=== PATIENT | male | born 1950 | race Caucasian/White ===

== ENCOUNTER 2025-02-04 10:05 | Emergency (ER) | payer OTHER, SELFPAY ==
[2025-02-04 10:15] VITALS: BP 101/73
[2025-02-04 11:27] VITALS: BMI 23.9
[2025-02-04 11:32] VITALS: BP 102/80
--- NOTE | 2025-02-04 11:44 | ED.GENMED ---
History of Present Illness
General
Chief Complaint: Rectal Bleeding
Source: patient
Exam Limitations: none
Time Seen by Provider: 02/04/25 11:12
Nursing documentation reviewed up to this point in time: agreed with
History of Present Illness
History of Present Illness:
Patient is a 75-year-old male who presents to the ER for evaluation. Patient reports he had sushi 2 days ago and that evening started with vomiting diarrhea. He had 1 episode of vomiting and multiple episodes of diarrhea. He continued to have
diarrhea until yesterday afternoon around 12 PM. He did notice however when he wiped he noticed bright red blood on the toilet paper. He denies any diarrhea now. He reports stools are just soft. He denies any abdominal pain fever chills
dizziness. He is on aspirin only no other blood thinners.
No one else ate the same food as he did.
Past History
Past History
ED Past Medical History: Hypercholesterolemia; Negative Arrthythmia
ED Past Surgical History: Appendectomy, Brain and Other (SDH)
Social History
Tobacco: Former smoker
Alcohol: Occasional
Drug: None
Personal:
Living: with family
Employment: Employed ([employer])
Family History
Family History: Other (Noncontributory)
Review of Systems
Review of Systems
Allergies reviewed?: Yes
All Other Systems: ROS reviewed and negative except as documented in HPI and ROS
Constitutional: Reports no symptoms
Respiratory: Reports no symptoms
Cardiac: Reports no symptoms
ABD/GI: Reports nausea, vomiting, diarrhea and other (bright red blood on toilet paper ); Denies abdominal pain or constipated
Musculoskeletal: Reports no symptoms
Skin: Reports no symptoms
Neurological: Reports no symptoms
Psychiatric: Reports no symptoms
Phy Exam
General Physical Exam
General Presentation: no apparent distress
General Skin: warm and dry
General Habitus: normal
General Mental: alert
General Hydration: appears well hydrated
Cardiovascular Exam
Cardiovascular Exam: regular rate/rhythm, no murmur and normal peripheral pulses
Pulmonary Exam
Pulmonary Exam: lungs clear and no respiratory distress
Gastrointestinal Exam
Gastrointestinal Exam: non tender, soft and other (rectal exam: no stool however small amt of bright red blood in rectum )
Neurological Exam
Neurological Exam: alert and oriented x3
Musculoskeletal Exam
Musculoskeletal Exam: full ROM
Skin Exam
Skin Exam: normal color and warm/dry
Psychiatric Exam
Psychiatric Exam: normal mood/affect
Course
Orders/Labs/Results
Orders:
Orders
02/04/25 11:16
IV Insert/Care/Rem.- Treatment PRN
Stool Culture Urgent
HILARIA Source: Feces/Stool
Specimen Description:
Date Specimen was Collected: 02/04/25
Time Specimen was Collected: 11:24
02/04/25 11:27
Complete Blood Count/With Diff Urgent
Comprehensive Metabolic Panel Urgent
02/04/25 11:45
CT Abd/Pel (IV only)-DH only Urgent
Comment:
Reason For Exam: rectal bleeding
0.9% Sodium Chloride 1000 ml [Nss] 1,000 ml IV BOLUS
Abnormal Lab Results
02/04/25
11:27
MPV 10.8 H fL
(7.4-10.4)
Absolute Monos (auto) 0.8 H 10^3/uL
(0.1-0.6)
BUN 23 H mg/dl
(9-20)
02/04/25 11:27
02/04/25 11:27
Vital Signs
Initial and Last Documented VS:
Initial Vital Signs
Temp Pulse Resp BP Pulse Ox
97.8 F 73 18 101/73 96
02/04/25 10:15 02/04/25 10:15 02/04/25 10:15 02/04/25 10:15 02/04/25 10:15
Last Documented Vital Signs
Temp Pulse Resp BP Pulse Ox
97.8 F 73 18 110/84 95
02/04/25 10:15 02/04/25 10:15 02/04/25 10:15 02/04/25 13:43 02/04/25 13:45
Patient Service Associate consulted with Physician
Patient Service Associate consulted with physician?: Yes
Name of Physician Consulted: kiana
MDM/Problems Addressed
Differential Diagnosis Includes:
not limited to: colitis, viral syndrome, gi bleed
MDM/Problems Addressed:
Patient is document is a 75 show male who presented to the ER for evaluation. He had sushi several nights ago and had several episodes of vomiting and diarrhea, vomiting stopped but diarrhea ended yesterday at 12 PM. He did complain of some bright
red blood on the toilet paper with wiping which prompted patient to come to the ER. He no obvious abdominal pain however with question of bloody diarrhea CAT scan was done as reviewed with ED physician. CAT scan shows suggestion of some descending
colon wall thickening and some surrounding stranding LE suspicious for colitis. Patient rectal exam was done there is no stool in the rectum trace blood.
Patient is afebrile with a normal white count stable hemoglobin and platelets, normal chemistries .
Case discussed with GI DR Cuba will hold off on antibx.
*Radiology
Radiology exam reviewed: radiology read reviewed
*Critical Care Note
Total Time (30-74mins, 75-104mins- exclusive of procedures): Not Applicable
ED Attending Note
-
Portions of this chart may have been created with voice recognition software.� Occasional wrong word or��sound alike� substitutions may have occurred due to the inherent limitations of voice recognition software.
Discharge Plan
Departure
Patient Disposition: Home (Routine Discharge)
Date of Disposition: 02/04/25
Time of Disposition: 14:20
Patient with high blood pressure during this ER visit?: No
Covid-19: Not Applicable
Discharge Problem:
Colitis
Instructions: Diarrhea in teens and adults, Colitis - Discharge instructions
Prescriptions:
No Action
sildenafil (pulm.hypertension) 20 mg Tablet
60 mg PO TID
ambrisentan 10 mg Tablet
10 mg PO QPM
Referrals:
Anmol Cuba MD [Active] -
Teddy Chavez MD [Family Provider] -
Activity Restrictions/Additional Instructions:
As discussed bland diet for the next several days as tolerated. Stay well-hydrated. Follow-up with family doctor in the next several days for reexam and return if any worsening of symptoms. In addition please follow-up with GI.
Interventions
Interventions:
*Risk Screen - Suicide Last Done: 02/04/25 10:15
*General Assessment Last Done: 02/04/25 10:15
*Neglect/Abuse Screening Last Done: 02/04/25 10:15
*ED COVID-19 Vaccine History Last Done: 02/04/25 11:27
FT-Qktoup-Qezrmdegbi Assessment Last Done: 02/04/25 11:50
ED- Cardiac Assessment Last Done: 02/04/25 11:50
ED- Pulmonary Assessment Last Done: 02/04/25 11:50
Discharge Date and Time
Print Language: NIUEAN
[2025-02-04] MEDS: NSS 1000 IV (11:56)
[2025-02-04 12:00] VITALS: BP 101/77
[2025-02-04 12:01] LABS: ALT (SGPT) 13 U/L (0-50); AST (SGOT) 22 U/L (17-59); Albumin 3.9 g/dl (3.5-5.0); Alkaline Phosphatase 68 U/L (38-126); Blood Urea Nitrogen 23 mg/dl (9-20); Calcium 9.4 mg/dl (8.4-10.2); Carbon Dioxide 22 mmol/L (22-30); Chloride 105 mmol/L (98-107); Estimated Creatinine Clearance 63 ml/min; Glucose 87 mg/dl (70-99); Potassium 4.6 mmol/L (3.5-5.1); Sodium 137 mmol/L (135-145); Total Bilirubin 1.1 mg/dl (0.2-1.3); eGFR > 60.00
[2025-02-04 13:13] LABS: % Basophils 0.7 % (0-2); % Eosinophils 1.6 % (0-6); % Immature Granulocytes 0.2 % (0-0.5); % Lymphocytes 26.3 % (20.5-51.1); % Monocytes 8.9 % (1.7-9.3); % Neutrophils 62.3 % (42.2-75.2); Absolute Basophils 0.1 10^3/uL (0-0.2); Absolute Eosinophils 0.1 10^3/uL (0-0.7); Absolute Lymphocytes 2.3 10^3/uL (1.2-3.4); Absolute Monocytes 0.8 10^3/uL (0.1-0.6); Absolute Neutrophils 5.6 10^3/uL (1.4-6.5); Hematocrit 44.1 % (39.0-52.0); Hemoglobin 14.9 g/dL (13.0-18.0); Mean Corp Hgb Conc. 33.8 g/dL (33.0-37.0); Mean Platelet Volume 10.8 fL (7.4-10.4); Nucleated Red Blood Cells % 0 % (-); Platelet Count 235 10^3/uL (130-400); Red Blood Cell Count 5.13 10^6/uL (4.70-6.10); Red Cell Dist. Width 14.5 % (11.5-14.5); White Blood Cell Count 8.9 10^3/uL (4.8-10.8)
[2025-02-04 13:43] VITALS: BP 110/84
== END 2025-02-04 14:50 | disposition home or self-care (01) ==
LOC: EMR 10:05
PROVIDERS: Nurse Practitioner; EMERGENCY PHYSICIAN Emergency Medicine; FAMILY PHYSICIAN Family Medicine
DX: K52.9 Noninfective gastroenteritis and colitis, unspecified (principal); E78.00 Pure hypercholesterolemia, unspecified; Z79.82 Long term (current) use of aspirin; Z87.891 Personal history of nicotine dependence; Z90.49 Acquired absence of other specified parts of digestive tract
CPT/HCPCS: 96360; 99284; 74177; 80053; 85025; Q9967